=== PATIENT | female | born 1975 | race Caucasian/White ===

== ENCOUNTER 2016-06-25 14:18 | Emergency (ER) | payer OTHER, MEDICARE, MEDICAID ==
[2016-06-25 14:49] VITALS: TEMP 97.7; BMI 27.1
[2016-06-25] MEDS ORDERED: CYCLOBENZAPRINE 10 MG TAB PO ONE (17:04)
[2016-06-25] MEDS ORDERED: OXYCODONE HCL 5 MG TABLET PO ONE (17:04)
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
[2016-06-25 18:42] VITALS: BP 128/88; PULSE 58
== END 2016-06-25 18:49 | disposition home or self-care (01) ==
LOC: EDMC 14:18
DX: S39.012A Strain of muscle, fascia and tendon of lower back, initial encounter (principal); S16.1XXA Strain of muscle, fascia and tendon at neck level, initial encounter; V43.62XA Car passenger injured in collision with other type car in traffic accident, initial encounter
CPT/HCPCS: 72050; 72110; 99284; J3490

== ENCOUNTER 2016-06-27 03:00 | Emergency (ER) | payer MEDICARE, MEDICAID ==
[2016-06-27] MEDS ORDERED: NS 1,000 ML IV ONE (03:07)
[2016-06-27] MEDS ORDERED: ONDANSETRON HCL 4 MG/2 ML VIAL IV STA (03:07)
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
[2016-06-27 03:13] VITALS: BP 150/96; PULSE 80; TEMP 98.3; BMI 27.0
[2016-06-27] MEDS ORDERED: ONDANSETRON HCL 4 MG/2 ML VIAL IM STA (03:36)
[2016-06-27 03:59] LABS: AUTOMATED BASOPHIL 0.3 % (0-2); AUTOMATED EOSINOPHIL 0.2 % (0-5); AUTOMATED LYMPH 9.6 % (17-44); AUTOMATED MONOCYTE 3.3 % (3-10); AUTOMATED NEUTROPHIL 86.6 % (45-76); MPV 9.4 fL (7.4-10.4)
[2016-06-27] MEDS ORDERED: DICYCLOMINE 20 MG/2 ML VIAL IM ONE ×2 (04:26→04:39)
[2016-06-27 04:34] LABS: ALL NEG? NO
[2016-06-27 04:40] LABS: LEUKOCYTES/URINE NEG (NEGATIVE); NITRITE/URINE NEG (NEGATIVE); URINE OCCULT BLOOD NEG (NEG/TRACE); WBC/URINE 0-2 (0-5)
[2016-06-27 04:41] LABS: MDMA* NEG (NEGATIVE); METHAMPHETAMINES NEG (NEGATIVE); OXYCODONE *POSITIVE* (NEGATIVE)
== END 2016-06-27 05:15 | disposition home or self-care (01) ==
LOC: ED 03:00
DX: R10.84 Generalized abdominal pain (principal); F11.10 Opioid abuse, uncomplicated; F17.200 Nicotine dependence, unspecified, uncomplicated; I10 Essential (primary) hypertension; J44.9 Chronic obstructive pulmonary disease, unspecified; J45.909 Unspecified asthma, uncomplicated; K21.9 Gastro-esophageal reflux disease without esophagitis; F41.9 Anxiety disorder, unspecified; Z79.899 Other long term (current) drug therapy
CPT/HCPCS: 36415; 80307; 81001; 85025; 96372; 99283; J0500; J2405

== ENCOUNTER 2016-06-27 05:47 | Inpatient (IN) | payer OTHER, MEDICARE, MEDICAID ==
[2016-06-27] MEDS ORDERED: PROMETHAZINE 25 MG SUPP PR ONE (07:55)
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
[2016-06-27] MEDS ORDERED: HYDROmorphone 1 MG INJECTION IM ONE ×2 (08:21→08:54)
[2016-06-27] MEDS ORDERED: Pharmacy Review for Metformin - IV Contrast Given SCH (09:00)
[2016-06-27] MEDS ORDERED: MORPHINE 4 MG/ML INJECTION IV ONE (09:13)
[2016-06-27] MEDS ORDERED: DIATRIZOATE MEGLMINE/SODIUM 30 ML BOTTLE PO ONE (09:25)
--- NOTE | 2016-06-27 09:41 | DIRPT ---
CLINICAL DATA: 40-year-old female status post right central line placement and left-sided attempt. EXAM: PORTABLE CHEST 1 VIEW COMPARISON: Prior chest x-ray 04/09/2013 FINDINGS: Right IJ approach central venous catheter. The tip of the catheter overlies the mid to lower right atrium. The superior cavoatrial junction is approximately 4.5-5 cm superior to the catheter tip. The cardiac and mediastinal contours are within normal limits. There is no evidence of left-sided pneumothorax. No pleural effusion. Perhaps mild right basilar atelectasis. Osseous structures intact and unremarkable. IMPRESSION: 1. The tip of the right IJ approach central venous catheter overlies the mid to lower right atrium. The superior cavoatrial junction is approximately 4.5-5 cm superior to the tip of the catheter. 2. No evidence of pneumothorax or new pleural effusion. 3. Perhaps mild right basilar patchy airspace opacity which could reflect atelectasis or infiltrate. Electronically Signed By: Guilherme Ravi M.D. On: 06/27/2016 09:38
[2016-06-27 09:49] LABS: BLOOD UREA NITROGEN 13 MG/DL (7-17); CALCIUM 9.6 MG/DL (8.4-10.2); CALCULATED OSMOLALITY 282 MOs/Kg (270-290); CHLORIDE 107 mEq/L (98-107); GLUCOSE 123 MG/DL (70-99); SODIUM LEVEL 146 mEq/L (137-146); TOTAL PROTEIN 8.8 G/DL (6.3-8.2)
[2016-06-27 10:11] LABS: AUTOMATED BASOPHIL 1.7 % (0-2); AUTOMATED LYMPH 8.1 % (17-44); AUTOMATED MONOCYTE 2.9 % (3-10); AUTOMATED NEUTROPHIL 87.3 % (45-76); MPV 10.1 fL (7.4-10.4)
[2016-06-27] MEDS ORDERED: HYDROmorphone 1 MG INJECTION IV ONE ×2 (10:15→12:07)
--- NOTE | 2016-06-27 10:25 | DIRPT ---
CLINICAL DATA: Patient with diffuse abdominal pain, nausea and vomiting. EXAM: CT ABDOMEN AND PELVIS WITH CONTRAST TECHNIQUE: Multidetector CT imaging of the abdomen and pelvis was performed using the standard protocol following bolus administration of intravenous contrast. CONTRAST: 100 cc Isovue 370 COMPARISON: CT abdomen pelvis 07/06/2011. FINDINGS: Lower chest: Normal heart size. Small hiatal hernia. Dependent atelectasis within the bilateral lower lobes. No pleural effusion. Hepatobiliary: Liver is normal in size and contour. No focal hepatic lesion is identified. Gallbladder is unremarkable. Fatty deposition adjacent to the falciform ligament. No intrahepatic or extrahepatic biliary ductal dilatation. Pancreas: Unremarkable Spleen: Unremarkable Adrenals/Urinary Tract: The adrenal glands are normal. Kidneys enhance symmetrically with contrast. No hydronephrosis. Urinary bladder is unremarkable. Stomach/Bowel: Sigmoid colon is decompressed, limiting evaluation. The appendix is normal. No evidence for bowel obstruction. No free fluid or free intraperitoneal air. There is a large masslike filling defect within the stomach (image 18; series 3). Vascular/Lymphatic: Normal caliber abdominal aorta. No retroperitoneal lymphadenopathy. Other: Uterus and adnexal structures are unremarkable. Musculoskeletal: No aggressive or acute appearing osseous lesions. Small amount of gas within the subcutaneous fat overlying the right gluteal musculature, likely sequelae of injection. IMPRESSION: There is a large masslike filling defect demonstrated within the stomach which is nonspecific. While this may potentially represent ingested material, intraluminal mass is not excluded. Recommend direct visualization. Otherwise no acute process within the abdomen or pelvis. Electronically Signed By: Jerald Ching M.D. On: 06/27/2016 10:23
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
[2016-06-27] MEDS ORDERED: HYDROmorphone 1 MG INJECTION IV PRN (12:00)
[2016-06-27] MEDS ORDERED: ONDANSETRON HCL 4 MG/2 ML VIAL IV PRN (12:00)
[2016-06-27] MEDS ORDERED: TUSSIONEX 5 ML ORAL SYRINGE PO PRN (12:00)
[2016-06-27] MEDS ORDERED: TEMAZEPAM 15 MG CAP PO PRN (12:00)
[2016-06-27] MEDS ORDERED: PROMETHAZINE 25 MG/ML VIAL IV PRN (12:00)
[2016-06-27] MEDS ORDERED: SENNA CONCENTRATE TAB PO PRN (12:00)
[2016-06-27] MEDS ORDERED: ACETAMINOPHEN 325 MG SUPP PR PRN (12:00)
[2016-06-27] MEDS ORDERED: BENZONATATE 100 MG PERLES PO PRN (12:00)
[2016-06-27] MEDS ORDERED: NICOTINE 21 MG PATCH TOP PRN (12:00)
[2016-06-27] MEDS ORDERED: Albuterol/Ipratropium Neb 3 ML NEB NEB PRN (12:00)
[2016-06-27] MEDS ORDERED: BISACODYL 10 MG SUPP PR PRN (12:00)
[2016-06-27] MEDS ORDERED: NS 1,000 ML IV ONE (12:07)
[2016-06-27] MEDS: NS/KCl 20 mEq 1,000 ML IV SCH ×3 (14:17→22:26)
[2016-06-27] MEDS: GABAPENTIN 800 MG TAB PO SCH ×2 (14:18→20:28)
[2016-06-27] MEDS ORDERED: Chloraseptic 6 OZ BOT PO PRN ×2 (14:58→16:12)
[2016-06-27] MEDS ORDERED: Vaccine Screening Complete SCH (15:00)
[2016-06-27 15:21] LABS: ALL NEG? NO
[2016-06-27 15:27] LABS: LEUKOCYTES/URINE NEG (NEGATIVE); NITRITE/URINE NEG (NEGATIVE); RBC/URINE 0-2 (0-5); URINE OCCULT BLOOD NEG (NEG/TRACE); WBC/URINE 0-2 (0-5)
[2016-06-27 15:39] LABS: MDMA* NEG (NEGATIVE); METHAMPHETAMINES NEG (NEGATIVE); OXYCODONE NEG (NEGATIVE)
[2016-06-27] MEDS ORDERED: CHAPSTICK LIP BALM TOP PRN (16:09)
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
[2016-06-27] MEDS: HYDROmorphone 1 MG INJECTION IV PRN ×3 (16:24→22:34)
[2016-06-27] MEDS: PANTOPRAZOLE 40 MG VIAL IV SCH (16:25)
[2016-06-27] MEDS: NICOTINE 21 MG PATCH TOP SCH (16:25)
[2016-06-27] MEDS: ENOXAPARIN 40 MG/0.4 ML PFS SQ SCH (16:25)
[2016-06-27] MEDS: ACETAMINOPHEN 325 MG/TAB TABLET PO PRN (21:45)
[2016-06-28] MEDS: HYDROmorphone 1 MG INJECTION IV PRN ×9 (01:26→23:49)
[2016-06-28] MEDS: NS/KCl 20 mEq 1,000 ML IV SCH ×6 (04:42→22:00)
[2016-06-28] MEDS: ACETAMINOPHEN 325 MG/TAB TABLET PO PRN (04:53)
[2016-06-28] MEDS: GABAPENTIN 800 MG TAB PO SCH ×3 (04:53→20:55)
[2016-06-28] MEDS: PANTOPRAZOLE 40 MG VIAL IV SCH ×2 (04:54→16:16)
[2016-06-28 08:34] LABS: AUTOMATED BASOPHIL 0.5 % (0-2); AUTOMATED EOSINOPHIL 1.6 % (0-5); AUTOMATED LYMPH 21.8 % (17-44); AUTOMATED MONOCYTE 5.1 % (3-10); MPV 9.1 fL (7.4-10.4)
[2016-06-28 08:38] LABS: BLOOD UREA NITROGEN 15 MG/DL (7-17); CALCIUM 8.8 MG/DL (8.4-10.2); CALCULATED OSMOLALITY 279 MOs/Kg (270-290); CHLORIDE 109 mEq/L (98-107); GLUCOSE 85 MG/DL (70-99); SODIUM LEVEL 145 mEq/L (137-146)
--- NOTE | 2016-06-28 10:09 | DIRPT ---
CLINICAL DATA: Vomiting and abdominal pain. EXAM: DG ABDOMEN ACUTE W/ 1V CHEST COMPARISON: CT of the abdomen pelvis 06/27/2016 FINDINGS: Right internal jugular approach central venous catheter terminates within the right atrium. Enteric catheter is seen with tip in likely transpyloric location. Cardiomediastinal silhouette is normal. Mediastinal contours appear intact. There is no evidence of focal airspace consolidation, pleural effusion or pneumothorax. There is nonobstructive bowel gas pattern. Residual oral contrast is seen throughout the colon. No radiographic evidence of organomegaly. Osseous structures are without acute abnormality. Soft tissues are grossly normal. IMPRESSION: Negative abdominal radiographs. No acute cardiopulmonary disease. Electronically Signed By: Kwesi Snow M.D. On: 06/28/2016 10:06
--- NOTE | 2016-06-28 12:37 | GENMEDPROG ---
Chief Complaint: Says hungry and wants NG tube out. Says pain still severe and needs more dilaudid Notes Reviewed: Yes Events from last night noted and discussed with Clinical Staff Current Medication List: Reviewed Currently: Reports: Abdominal Pain. Denies: Cough, Wheezing, [place], SOB, Nausea and Vomiting, Chest Pain DVT Prophylaxis: Yes - Physical Examination Vital Signs and I&O: Last Vital Signs Temp 97.5 F 06/28/16 09:48 Pulse 66 06/28/16 09:48 Resp 18 06/28/16 09:48 BP 123/91 06/28/16 09:48 Pulse Ox 97 06/28/16 09:48 Oxygen Pulse Oxygen Saturation 97 O2 Device Room Air Oxygen Flow Rate Fraction of Inspired Oxygen ( FIO2) Intake & Output 06/25/16 06/26/16 06/27/16 06/28/16 23:59 23:59 23:59 23:59 Intake Total 2656 1215 Output Total 620 1050 Balance 2036 165 Patient's weight 60.866 kg 61.462 kg General: Alert, Oriented x3, Cooperative, Well appearing, Well nourished HEENT: Normal, PERRLA, EOMI Neck: Non-tender, Full range of motion, Normal Trachea alignment, Normal inspection. negative: JVD Lymphatics: Normal (no adenopathy) Respiratory: Normal - CTA (BBS clear to auscultation without adventitious sounds ) Cardiovascular: Regular rate and rhythm, No Gallops,Rubs/Murmurs GI: Normal bowel sounds, Soft, No hepatospenomegaly, Tenderness Extremities/Musculoskeletal: Normal pulses. negative: Tenderness, Swelling, Edema Skin: Warm,Dry and Intact, No rashes, No breakdown, No significant lesion Neurological: Normal speech, Strength at 5/5 X4 ext, Normal tone, Cranial nerves 3-12 NL Psych/Mental Status: Appropriate, Normal Affect, Cooperative Lab/DI/Studies Reviewed: Laboratory Results - last 24 hr 06/28/16 06/28/16 06/28/16 07:51 07:51 07:51 WBC 6.7 RBC 4.55 Hgb 13.1 Hct 39.6 MCV 87 MCH 28.8 MCHC 33.0 RDW 14.0 Plt Count 156 MPV 9.1 Neut % (Auto) 71.0 Lymph % (Auto) 21.8 [place] % (Auto) 5.1 Eos % (Auto) 1.6 Baso % (Auto) 0.5 Absolute Neuts (auto) 4.76 Absolute Lymphs (auto) 1.41 Sodium 145 Potassium 4.3 Chloride 109 H Carbon Dioxide 26 Anion Gap 14 BUN 15 Creatinine 0.50 L Estimated GFR (MDRD) > 60 Glucose 85 Calculated Osmolality 279 Calcium 8.8 Lipase 60 - Assessment (1) Diffuse abdominal pain Acute R10.84 - GENERALIZED ABDOMINAL PAIN Comment/Plan: Continue IV Protonix. Dr. Call to perform endoscopy tomorrow morning. (2) Back pain Acute M54.9 - DORSALGIA, UNSPECIFIED Qualifiers: Back pain location: low back pain Chronicity: chronic Back pain laterality: bilateral Sciatica presence: without sciatica Qualified Code(s) : M54.5 - Low back pain; G89.29 - Other chronic pain Comment/Plan: Continue p.r.n. analgesics. Requests more Dilaudid. (3) Constipation Acute K59.00 - CONSTIPATION, UNSPECIFIED Qualifiers: Constipation type: unspecified constipation type Qualified Code(s): K59.00 - Constipation, unspecified Comment/Plan: DC NG tube. Start p.o.. Encourage activity mobility. (4) Nausea and vomiting Acute R11.2 - NAUSEA WITH VOMITING, UNSPECIFIED Comment/Plan: Resolved. Requests food. Will discontinue NG tube and start clear liquids Case Care Discussed with: Patient, Consultants, Nursing Staff, Resource Management
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
[2016-06-28] MEDS: ENOXAPARIN 40 MG/0.4 ML PFS SQ SCH (16:14)
[2016-06-28] MEDS: NICOTINE 21 MG PATCH TOP SCH (16:14)
[2016-06-28] MEDS ORDERED: CHAPSTICK LIP BALM ONE (19:09)
[2016-06-29] MEDS: HYDROmorphone 1 MG INJECTION IV PRN ×6 (02:02→15:24)
[2016-06-29] MEDS: NS/KCl 20 mEq 1,000 ML IV SCH ×2 (04:14→06:02)
[2016-06-29] MEDS: PANTOPRAZOLE 40 MG VIAL IV SCH (04:29)
[2016-06-29] MEDS: GABAPENTIN 800 MG TAB PO SCH ×2 (04:33→13:14)
[2016-06-29 06:11] VITALS: BMI 25.2
[2016-06-29] MEDS ORDERED: SODIUM CHLORIDE 0.9% 5 ML FLUSH FLUSH PRN (06:33)
[2016-06-29 07:53] LABS: AUTOMATED BASOPHIL 0.4 % (0-2); AUTOMATED EOSINOPHIL 5.5 % (0-5); AUTOMATED LYMPH 29.2 % (17-44); AUTOMATED MONOCYTE 8.4 % (3-10); AUTOMATED NEUTROPHIL 56.5 % (45-76); MPV 9.7 fL (7.4-10.4)
[2016-06-29 08:29] LABS: BLOOD UREA NITROGEN 7 MG/DL (7-17); CALCIUM 8.6 MG/DL (8.4-10.2); CALCULATED OSMOLALITY 266 MOs/Kg (270-290); CHLORIDE 106 mEq/L (98-107); GLUCOSE 88 MG/DL (70-99); SODIUM LEVEL 140 mEq/L (137-146)
[2016-06-29] MEDS ORDERED: DIPHENHYDRAMINE 50 MG/ML VIAL ONE (10:37)
[2016-06-29] MEDS ORDERED: NS 0 ML IV ONE (10:37)
[2016-06-29] MEDS ORDERED: MEPERIDINE 25 MG/ML TUBEX ONE (10:37)
[2016-06-29] MEDS ORDERED: MIDAZOLAM 5 MG/5 ML VIAL ONE (10:37)
--- NOTE | 2016-06-29 11:02 | HIMOPRPT ---
DATE OF PROCEDURE: 06/29/16 PROCEDURE: Esophagogastroduodenoscopy with biopsy. INDICATIONS: Abdominal pain abnormal gastrium on CT questionable mass. INSTRUMENTS: Olympus video upper endoscope. MEDICATIONS: Versed 10 mg IV and Demerol 75 mg IV Benadryl 50 mg IV. PHYSICAL EXAMINATION: GENERAL: The patient was in no distress. VITAL SIGNS: Stable. CHEST: Clear CARDIAC: Regular rate and rhythm. ABDOMEN: [Nondistended, nontender]. NEUROLOGIC: The patient was alert and oriented. DESCRIPTION OF PROCEDURE: Ms Martinez was placed in a left lateral position and IV sedation was given in small incremental doses for the patient's comfort for moderate sedation. The throat was anesthetized with Cetacaine spray.The endoscope was advanced without difficulty into the duodenum. ESOPHAGUS: Esophagus had gastroesophageal junction located at 38 cm. The GE junction was well distended. The distal esophagus was not inflamed]. STOMACH: [Stomach had erythema a likely NG tube trauma in the distal body and antrum. There were no ulcers or erosions. There was no retained food in the stomach. The proximal body and fundus were unremarkable with normal mucosal. No significant hiatal hernia was noted. DUODENUM: The duodenum was normal. Antral and fundal biopsies were obtained for H. pylori testing. The patient tolerated the procedure well. IMPRESSION: 1. NG tube trauma otherwise normal upper endoscopy RECOMMENDATIONS: 1. PPI therapy for 1 week then may discontinue as she has no chronic problems 2. Soft diet today 3. Antacids p.r.n. 4. Awaiting H pylori testing 5. If patient tolerates her diet reasonable for discharge and no follow-up unless further problems developed
[2016-06-29] MEDS ORDERED: SODIUM CHLORIDE 0.9% 3 ML FLUSH FLUSH PRN (11:03)
[2016-06-29] MEDS ORDERED: SODIUM CHLORIDE 0.9% 3 ML FLUSH FLUSH SCH ×2 (12:00→18:00)
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
[2016-06-29] MEDS: NICOTINE 21 MG PATCH TOP SCH (15:38)
[2016-06-29 17:32] VITALS: BP 146/90; PULSE 81; TEMP 98.3
[2016-06-29] MEDS ORDERED: SODIUM CHLORIDE 0.9% 5 ML FLUSH FLUSH SCH (18:00)
[2016-06-29] MEDS ORDERED: PANTOPRAZOLE 40 MG TAB PO SCH (18:00)
== END 2016-06-29 18:15 | disposition home or self-care (01) | DRG 392 ==
LOC: ED 05:47 → MPS3 12:00
PROVIDERS: ADMIT Internal Medicine; ATTEND Hospitalist
PROC: 0DB68ZX Excision of Stomach, Via Natural or Artificial Opening Endoscopic, Diagnostic (ICD-10-PCS; principal; 2016-06-29)
PROC: 0DB68ZX Excision of Stomach, Via Natural or Artificial Opening Endoscopic, Diagnostic (ICD-10-PCS; 2016-06-29)
PROC: 05HM33Z Insertion of Infusion Device into Right Internal Jugular Vein, Percutaneous Approach (ICD-10-PCS; 2016-06-29)
PROC: B543ZZA Ultrasonography of Right Jugular Veins, Guidance (ICD-10-PCS; 2016-06-29)
DX: R10.84 Generalized abdominal pain (principal); I10 Essential (primary) hypertension; K02.9 Dental caries, unspecified; M79.604 Pain in right leg; M79.605 Pain in left leg; S39.012A Strain of muscle, fascia and tendon of lower back, initial encounter; K30 Functional dyspepsia; V49.9XXA Car occupant (driver) (passenger) injured in unspecified traffic accident, initial encounter; J44.9 Chronic obstructive pulmonary disease, unspecified; J45.909 Unspecified asthma, uncomplicated; G89.29 Other chronic pain; K59.00 Constipation, unspecified; R11.2 Nausea with vomiting, unspecified; F17.210 Nicotine dependence, cigarettes, uncomplicated
CPT/HCPCS: 36415; 43239; 71010; 74022; 74177; 80048; 80053; 80307; 81001; 83605; 83690; 84443; 85025; 87040; 87081; 87086; 96372; 96374; 96375; 99285; 99406; A9698; G0237; J1170; J1200; J1650; J2175; J2250; J2270; J2405; J3490; J7040; S0164